=== PATIENT | female | born 1975 | race Caucasian/White ===

== ENCOUNTER 2018-12-03 09:11 | Emergency (ER) | payer OTHER ==
[~2018-12-03] VITALS: Wt 71.3 kg
[2018-12-03 09:15] VITALS: BP 135/63; PULSE 105; RESP 17
[2018-12-03] MEDS ORDERED: DEXAMETHASONE 4 MG TAB PO ONE (11:00)
[2018-12-03] MEDS ORDERED: IBUPROFEN 600 MG TAB PO ONE (11:00)
[2018-12-03] MEDS ORDERED: AZIT500T3 PO (11:04)
[2018-12-03] MEDS ORDERED: IBUP-1542 PO (11:04)
--- NOTE | 2018-12-03 11:06 | ERD ---
ER Documentation Chief Complaint Chief Complaint HEADACHE, THROAT PAIN, FOOT PAIN, ONSET 2 DAYS HPI 43-year-old female presents with sore throat, headache for last 3 days. She also has low back pain rating to the right leg. Denies urinary complaints. She may have had tactile fevers but no measured temperature. She denies cough, chest pain, abdominal pain. ROS All systems reviewed and are negative except as per history of present illness. Medications Home Meds Active Scripts Acetaminophen* (Tylophen*) 500 Mg Capsule, 1 CAP PO Q6H PRN for PAIN AND OR ELEVATED TEMP, #20 CAP Prov:JESUS CHILDERS MD 12/03/18 Azithromycin* (Zithromax*) 500 Mg Tablet, 500 MG PO DAILY for 5 Days, TAB Prov:JESUS CHILDERS MD 12/03/18 Discontinued Scripts Ibuprofen* (Motrin*) 600 Mg Tab, 600 MG PO Q6, #20 TAB Prov:JESUS CHILDERS MD 12/03/18 Allergies Allergies: Coded Allergies: ibuprofen (Unverified Allergy, Intermediate, 12/03/18) PMhx/Soc Medical and Surgical Hx: pt denies Medical Hx, pt denies Surgical Hx FmHx Family History: No diabetes, No coronary disease, No other Physical Exam Vitals Vital Signs Date Temp Pulse Resp B/P (MAP) Pulse Ox O2 O2 Flow FiO2 Time Delivery Rate 12/03/18 98.7 105 17 135/63 98 09:15 (87) Physical Exam Const: No acute distress Head: Atraumatic Eyes: Normal Conjunctiva ENT: Normal External Ears, Nose and Mouth. Gums normal. Tonsils 3+ with erythema and exudate. Uvula midline and airway patent. Tender anterior cervical lymph nodes. Neck: Full range of motion. No meningismus. Resp: Clear to auscultation bilaterally Cardio: Regular rate and rhythm, no murmurs Abd: Soft, non tender, non distended. Normal bowel sounds Skin: No petechiae or rashes Back: No midline or flank tenderness Ext: No cyanosis, or edema Neur: Awake and alert Psych: Normal Mood and Affect Results 24 hrs Current Medications Medications Dose Sig/Rafia Start Time Status Last (Trade) Ordered Route PRN Stop Time Admin Dose Reason Admin 8 mg ONCE ONCE 12/03/18 DC Dexamethasone PO 11:00 (Decadron) 12/03/18 11:01 Ibuprofen 600 mg ONCE ONCE 12/03/18 DC (Motrin) PO 11:00 12/03/18 11:01 Procedures/MDM Patient presents with signs of exudative pharyngitis. There is no evidence of abscess, airway obstruction. She additionally has signs of low back pain rating to the right leg consistent with sciatica without neurologic deficit, genitourin hugo symptoms. Doubt cauda equina or epidural abscess. Will treat with Decadron 8 mg here with ibuprofen for lymphadenitis and will treat with Zithromax, Tylenol as patient states that she may have an allergy to penicillin as well as ibuprofen although not certain which one., primary care follow-up and return precautions. The patient was stable with no new complaints during the ER course. Clinically, there is no current evidence to suggest meningitis, sepsis, acute abdomen, pneumonia, stroke, acute coronary syndrome, pulmonary embolism, aortic dissection or any other emergent condition appearing to require further evaluation or hospitalization. Patient counseled regarding my diagnostic impression and care plan. Prior to discharge all questions answered. Pt agrees with treatment plan and understands strict return precautions. Pt is instructed to follow up with primary care provider within 24-48 hours. Precautionary instructions provided including instructions to return to the ER if not improving or for any worsening or changing symptoms or concerns. Departure Diagnosis: Primary Impression: Pharyngitis Pharyngitis/tonsillitis etiology: unspecified etiology Qualified Codes: J02.9 - Acute pharyngitis, unspecified Condition: Stable Patient Instructions: Pharyngitis, Strep (Presumed) Additional Instructions: Examines normal hoy.or regresa para mas o nueva simptomas. JESUS CHILDERS MD Dec 03, 2018 11:06
[2018-12-03] MEDS ORDERED: ACET500C5 PO (11:07)
[2018-12-03] MEDS ORDERED: ACETAMINOPHEN 325 MG TAB PO ONE (11:30)
== END 2018-12-03 11:57 | disposition home or self-care (01) ==
LOC: FTE 09:11
DX: J02.9 Acute pharyngitis, unspecified (principal)
CPT/HCPCS: Z7502; Z7610; 99283